=== PATIENT | male | born 1960 | race Two or more races ===

== ENCOUNTER 2017-06-28 16:01 | Emergency (ER) | payer MEDICAID ==
[~2017-06-28] VITALS: Ht 167.6 cm; Wt 113.4 kg
--- NOTE | 2017-06-28 16:11 | Emergency Room Report ---
History of Present Illness General Source: Patient Present Illness HPI 57-year-old male with pmhx of diabetes p/w syncopal episode. Syncopal episode occurred on the street. Patient was standing, felt dizzy, and then fell +head trauma, +LOC for unknown amount of time Pt states feeling lightheadedness/nauseous before event. Denies sob, palpitations, or chest pain before event. There was no seizure like activity, tongue biting, urinary incontinence, blurry vision, or MASTERS. Pt has been eating/drinking well. Patient has syncopized in the past but many years ago. Denies recent fever, chills, n/v/d. co R forearm pain, sustained abrasion to R hand, pt states TETANUS UTD Allergies: Coded Allergies: No Known Allergies (Unverified , 06/28/17) Patient History Past Medical History: see triage record Past Surgical History: none Pertinent Family History: none Reviewed Nursing Documentation: PMH: Agreed; PSxH: Agreed Review of Systems All Other Systems: negative except mentioned in HPI Physical Exam Sp02 EP Interpretation: reviewed, normal General Appearance: alert, GCS 15, non-toxic, mild distress Head: normocephalic - no hematoma/ecchymosis, atraumatic Eyes: bilateral eye normal inspection, bilateral eye PERRL, bilateral eye EOMI ENT: normal ENT inspection, normal pharynx, normal voice, moist mucus membranes Neck: normal inspection, full range of motion, supple, no bony tend Respiratory: normal inspection, lungs clear, normal breath sounds, no respiratory distress, no retraction, no wheezing, speaking full sentences, chest symmetrical Cardiovascular #1: normal inspection, regular rate, rhythm, normal capillary refill Cardiovascular #2: 2+ radial (R), 2+ radial (L) Gastrointestinal: normal inspection, non tender, soft, non-distended, no guarding Musculoskeletal: back normal, normal range of motion, other - Right proximal forearm with some tenderness, no swelling, full range of motion of elbow and wrist, small superficial abrasion noted to palmar aspect of right hand, not bleeding Neurologic: normal inspection, alert, oriented x3, responsive, sports broadcaster III-XII nml as tested, motor strength/tone normal, sensory intact, speech normal Psychiatric: normal inspection, judgement/insight normal, memory normal Skin: normal inspection, normal color, no rash, warm/dry, well hydrated, normal turgor Medical Decision Making Diagnostic Impression: Primary Impression: Syncope Additional Impressions: Abrasion Mild renal insufficiency ER Course 57-year-old male with syncopal episode DDX: Vasovagal vs. orthostatic / hypovolemic/dehydration vs. cardiac arrhythmia (SVT , Afib) vs. cardiac (, ACS) vs. PE vs. metabolic (hypoglycemia, hypoxia), vs neuro (seizure, CVA, intracranial bleed) Plan: bgm, cbc, bmp, ekg, cxr consider IVF CT head CT C-spine Forearm x-ray ER course: Patient has remained stable during ED stay. FEELS BETTER imaging neg wound R hand was irrigated, nothing to suture Patient states improvement of symptoms, and has been able to ambulate without difficulty. Noted to have mild renal insuff - better than previous visit. told to monitor Disposition: Patient is discharged to home and will follow up with their PMD within 3 days. Strict return precautions discussed with patient such as severe headache, recurrent syncope, chest pain, shortness of breath, nausea or vomiting. Patient verbalized understanding. Please note that this Emergency Department Report was dictated using [employer] picking tech technology software, occasionally this can lead to erroneous entry secondary to interpretation by the dictation equipment. EKG Diagnostic Results EP Interpretation: Yes Rate: normal Rhythm: NSR ST Segments: No acute changes ASA given to patient: No Rhythm Strip EP Interpretation: Yes Rate: 70 Rhythm: NSR, no PVCs, no ectopy Chest X-ray CXR: Ordered: Yes 1 view Indication: Syncope EP interpretation: Yes Interpretation: No consolidation, no effusion, no PTX, no acute cardiopulmonary disease Impression: No acute disease Electronically signed by Paras Kramer MD Xray: Right forearm 2 view Indication: Pain EP Interpretation: Yes Interpretation: No dislocation, no soft tissue swelling, no fractures Impression: No acute disease Electronically signed by Paras Kramer MD Xray: Right wrist 3 view Indication: Pain EP Interpretation: Yes Interpretation: No dislocation, no soft tissue swelling, no fractures Impression: No acute disease Electronically signed by Paras Kramer MD Xray: Right hand 3 view Indication: Pain EP Interpretation: Yes Interpretation: No dislocation, no soft tissue swelling, no fractures Impression: No acute disease Electronically signed by Paras Kramer MD Laboratory Tests Test 06/28/17 16:47 White Blood Count 6.7 K/UL (4.8-10.8) Red Blood Count 4.31 M/UL (4.70-6.10) L Hemoglobin 13.5 G/DL (14.2-18.0) L Hematocrit 38.7 % (42.0-52.0) L Mean Corpuscular Volume 90 FL (80-99) Mean Corpuscular Hemoglobin 31.3 PG (27.0-31.0) H Mean Corpuscular Hemoglobin Concent 35.0 G/DL (32.0-36.0) Red Cell Distribution Width 11.4 % (11.6-14.8) L Platelet Count 152 K/UL (150-450) Mean Platelet Volume 8.6 FL (6.5-10.1) Neutrophils (%) (Auto) 67.1 % (45.0-75.0) Lymphocytes (%) (Auto) 22.5 % (20.0-45.0) Monocytes (%) (Auto) 8.1 % (1.0-10.0) Eosinophils (%) (Auto) 1.4 % (0.0-3.0) Basophils (%) (Auto) 0.9 % (0.0-2.0) Prothrombin Time 13.4 SEC (9.30-11.50) H Prothrombin Time INR 1.3 (0.9-1.1) H PTT 28 SEC (23-33) Urine Color Pale yellow Urine Appearance Clear Urine pH 5 (4.5-8.0) Urine Specific [place] 1.005 (1.005-1.035) Urine Protein Negative (NEGATIVE) Urine Glucose (UA) 2+ (NEGATIVE) H Urine Ketones Negative (NEGATIVE) Urine Occult Blood 1+ (NEGATIVE) H Urine Nitrite Negative (NEGATIVE) Urine Bilirubin Negative (NEGATIVE) Urine Urobilinogen Normal MG/DL (0.0-1.0) Urine Leukocyte Esterase Negative (NEGATIVE) Urine RBC 2-4 /HPF (0 - 0) H Urine WBC 0-2 /HPF (0 - 0) Urine Squamous Epithelial Cells Occasional /LPF Urine Bacteria None /HPF (NONE) Sodium Level 134 MMOL/L (136-145) L Potassium Level 4.9 MMOL/L (3.5-5.1) Chloride Level 101 MMOL/L (98-107) Carbon Dioxide Level 22 MMOL/L (21-32) Anion Gap 11 mmol/L (5-15) Blood Urea Nitrogen 27 mg/dL (7-18) H Creatinine 1.6 MG/DL (0.55-1.30) H Estimate Glomerular Filtration Rate 44.6 mL/min (>60) Glucose Level 157 MG/DL (74-106) H Calcium Level 9.1 MG/DL (8.5-10.1) Total Bilirubin 0.4 MG/DL (0.2-1.0) Aspartate Amino Transferase (AST) 27 U/L (15-37) Alanine Aminotransferase (ALT) 50 U/L (12-78) Alkaline Phosphatase 72 U/L (46-116) Total Creatine Kinase 86 U/L (26-308) Troponin I 0.000 ng/mL (0.000-0.056) Pro-B-Type Natriuretic Peptide 48 pg/mL (0-125) Total Protein 7.9 G/DL (6.4-8.2) Albumin 3.8 G/DL (3.4-5.0) Globulin 4.1 g/dL Albumin/Globulin Ratio 0.9 (1.0-2.7) L CT/MRI/US Diagnostic Results CT/MRI/US Diagnostic Results : Imaging Test Ordered: CT HEAD and C SPINE Impression NEG FOR ACUTE PROCESS FOR BOTH Disposition: HOME, SELF-CARE Condition: Improved Paras Kramer M.D. Jun 28, 2017 16:11
[2017-06-28 16:33] VITALS: BP 96/52
--- NOTE | 2017-06-28 17:11 | Diagnostic Imaging Report ---
Indications: Head and neck pain status post fall Technique: Spiral acquisitions obtained through the brain. Angled axial and coronal 5 x 5 mm slices were reconstructed. Total dose length product 2214.71 mGycm. CTDI vol(s) 70.38,32.07 mGy. Dose reduction achieved using automated exposure control Comparison: None. Findings: No acute hemorrhage or edema. No mass effect or midline shift. Normal for age ventricles and extra-axial CSF spaces. Normal oliver-white differentiation. Intact calvarium. Visualized sinuses are unremarkable. There is evidence of prior ocular surgery on the right. Impression: No acute process The CT scanner at [facility] is accredited by the [employer] and the scans are performed using protocols designed to limit radiation exposure to as low as reasonably achievable to attain images of sufficient resolution adequate for diagnostic evaluation.
--- NOTE | 2017-06-28 17:14 | Diagnostic Imaging Report ---
Indication: Fall, head and neck pain Technique: Spiral acquisitions obtained through the cervical spine. No IV contrast utilized. Multiplanar reconstructions were generated. Total dose length product 2214.71 mGycm. CTDIvol(s) 70.38,32.07 mGy. Dose reduction achieved using automated exposure control. Comparison: none Findings: Bony alignment is normal. Vertebral body heights are preserved. Disc spaces are preserved. No prevertebral soft tissue swelling. No acute fractures. No dislocations. No significant disc bulge or protrusion. No spinal stenosis or neural foraminal stenosis. Impression: Negative The CT scanner at [facility] is accredited by the [employer] and the scans are performed using protocols designed to limit radiation exposure to as low as reasonably achievable to attain images of sufficient resolution adequate for diagnostic evaluation.
--- NOTE | 2017-06-28 17:15 | Diagnostic Imaging Report ---
Indications: Pain, trauma Technique: Two views of the right forearm Comparison: None Findings: No acute fractures. No dislocations. The joint spaces are preserved Impression: Negative
--- NOTE | 2017-06-28 17:16 | Diagnostic Imaging Report ---
Indication: Chest pain Technique: One view of the chest Comparison: 10/26/2011 Findings: Less optimal inspiration currently Heart is borderline enlarged. Lungs and pleural spaces are clear. The heart is larger than on the prior exam, but this could possibly be an artifact of a less optimal inspiration. No other significant change Impression: No acute process
[2017-06-28 17:25] LABS: BASOPHILS % (AUTO) 0.9 % (0.0-2.0); EOSINOPHILS % (AUTO) 1.4 % (0.0-3.0); HEMATOCRIT 38.7 % (42.0-52.0); HEMOGLOBIN 13.5 G/DL (14.2-18.0); LYMPHOCYTES % (AUTO) 22.5 % (20.0-45.0); MEAN CORPUSCULAR VOLUME 90 FL (80-99); MONOCYTES % (AUTO) 8.1 % (1.0-10.0); NEUTROPHILS % (AUTO) 67.1 % (45.0-75.0); PLATELET COUNT 152 K/UL (150-450); RED BLOOD COUNT 4.31 M/UL (4.70-6.10); RED CELL DISTRIBUTION WIDTH 11.4 % (11.6-14.8); WHITE BLOOD COUNT 6.7 K/UL (4.8-10.8)
[2017-06-28 17:26] LABS: APPEARANCE,URINE CLEAR; BILIRUBIN, URINE NEGATIVE (NEGATIVE); COLOR,URINE PALE YELLOW; GLUCOSE, URINE (UA) 2+ (NEGATIVE); KETONES,URINE NEGATIVE (NEGATIVE); LEUKOCYTE ESTERASE ,URINE NEGATIVE (NEGATIVE); NITRITE,URINE NEGATIVE (NEGATIVE); PH,URINE 5 (4.5-8.0); PROTEIN,URINE NEGATIVE (NEGATIVE); UROBILINOGEN,URINE NORMAL MG/DL (0.0-1.0)
[2017-06-28 17:31] LABS: INR 1.3 (0.9-1.1)
[2017-06-28 17:42] LABS: ANION GAP 11 mmol/L (5-15); BLOOD UREA NITROGEN 27 mg/dL (7-18); CALCIUM 9.1 MG/DL (8.5-10.1); CARBON DIOXIDE 22 MMOL/L (21-32); CHLORIDE 101 MMOL/L (98-107); CREATININE 1.6 MG/DL (0.55-1.30); POTASSIUM 4.9 MMOL/L (3.5-5.1); SODIUM 134 MMOL/L (136-145)
[2017-06-28 17:47] LABS: ALANINE AMINOTRANSFERASE 50 U/L (12-78); ALBUMIN 3.8 G/DL (3.4-5.0); ALBUMIN/GLOBULIN RATIO 0.9 (1.0-2.7); ALKALINE PHOSPHATASE 72 U/L (46-116); ASPARTATE AMINO TRANSFERASE 27 U/L (15-37); BILIRUBIN,TOTAL 0.4 MG/DL (0.2-1.0); CREATINE KINASE 86 U/L (26-308)
[2017-06-28 18:34] VITALS: BP 134/77
--- NOTE | 2017-06-29 10:09 | Diagnostic Imaging Report ---
Indication: Pain Technique: XRAY Wrist Complete R Comparison: None Findings: There is no evidence of acute fracture or dislocation. Anatomic alignment and joint spaces appear preserved. Vascular calcifications noted. No retained foreign body is seen. Impression: No evidence of acute fracture or dislocation.
--- NOTE | 2017-06-29 10:11 | Diagnostic Imaging Report ---
Indication: Pain status post fall Technique: XRAY Hand Complete R Comparison: None Findings: Obliquely limited due to overlying IV. There is no evidence of acute fracture or dislocation. Anatomic alignment and joint spaces are preserved. No focal soft tissue abnormality/defect is appreciated. No radiopaque foreign body seen. Atherosclerotic vascular calcification is noted. Impression: No definite evidence of acute fracture or dislocation.
--- NOTE | 2017-07-01 21:27 | Cardiology Report ---
APPROVED REPORT EKG Measurement Heart [id number] ID [id number] Normal sinus rhythm Normal ECG
== END 2017-06-28 18:36 | disposition home or self-care (01) ==
LOC: EDBD 16:01 → EMR 18:17
DX: R55 Syncope and collapse (principal); S60.511A Abrasion of right hand, initial encounter; W19.XXXA Unspecified fall, initial encounter; Y92.410 Unspecified street and highway as the place of occurrence of the external cause; N28.9 Disorder of kidney and ureter, unspecified; R51 Headache; M54.2 Cervicalgia; M25.531 Pain in right wrist; R07.9 Chest pain, unspecified
CPT/HCPCS: 36415; 70450; 71045; 72125; 80053; 81003; 82550; 83880; 84484; 85025; 85610; 85730; 93005; 99284